=== PATIENT | male | born 1980 | race Caucasian/White ===

== ENCOUNTER → 2019-03-17 | Outpatient (CLI) | payer BC, OTHER ==
[~2019-03-17] MED LIST: ACET325T26 PO; MULT1TAB60 PO; OMNIPAQUE 350 MG/ML, 100ML BOTTLE ONE; OXYC-302 PO; OXYC10TA6 PO
== END | disposition home or self-care (01) ==
LOC: CFH 09:05
PROVIDERS: ATTEND Physician Assistant
DX: I82.890 Acute embolism and thrombosis of other specified veins (principal); E78.2 Mixed hyperlipidemia; R06.09 Other forms of dyspnea; R73.03 Prediabetes
CPT/HCPCS: 74177; Q9967